=== PATIENT | male | born 1950 | race Caucasian/White ===

== ENCOUNTER 2017-10-16 16:00 | Emergency (ER) | payer OTHER | END 2017-10-16 17:39 | disposition home or self-care (01) | LOC: D.ER 16:00 | DX: S01.81XA Laceration without foreign body of other part of head, initial encounter (principal); W22.8XXA Striking against or struck by other objects, initial encounter; Y93.89 Activity, other specified; Y92.019 Unspecified place in single-family (private) house as the place of occurrence of the external cause ==

== ENCOUNTER 2018-01-03 20:08 | Emergency (ER) | payer OTHER ==
[~2018-01-03] VITALS: Ht 170.2 cm; Wt 97.7 kg
[2018-01-03 20:25] VITALS: Ht 170.2 cm; Wt 97.7 kg
[2018-01-04] MEDS ORDERED: ULTRAM50 MG PO (01:37)
[2018-01-04] MEDS ORDERED: ROBAXIN-750750 MG PO (01:37)
[2018-01-04 01:59] VITALS: BP 128/79
== END 2018-01-04 02:00 | disposition home or self-care (01) ==
LOC: D.ER 20:08
DX: S40.012A Contusion of left shoulder, initial encounter (principal); X58.XXXA Exposure to other specified factors, initial encounter; Y93.89 Activity, other specified; Y92.89 Other specified places as the place of occurrence of the external cause; M62.838 Other muscle spasm